=== PATIENT | male | born 1960 | race Two or more races ===

== ENCOUNTER 2020-06-07 14:16 | Outpatient (CLI) | payer BC, SELFPAY | END 2020-06-07 14:17 | disposition home or self-care (01) | LOC: ANHCOVIDVC 14:16 | PROVIDERS: PCP Family Medicine | DX: Z23 Encounter for immunization (principal) | CPT/HCPCS: 0001A; 91300 ==

== ENCOUNTER 2020-06-28 14:15 | Outpatient (CLI) | payer BC, SELFPAY | END 2020-06-28 14:16 | disposition home or self-care (01) | LOC: ANHCOVIDVC 14:15 | PROVIDERS: PCP Family Medicine | DX: Z23 Encounter for immunization (principal) | CPT/HCPCS: 0002A; 91300 ==

== ENCOUNTER → 2023-01-27 07:55 | Outpatient (CLI) | payer BC, SELFPAY ==
--- NOTE | ~2023-01-27 | US_ITS ---
EXAMINATION: US renal BI DATE: 01/27/2023 08:12 INDICATION: Proteinuria, unspecified. TECHNIQUE: Multiple ultrasound grayscale images of the kidneys were obtained. COMPARISON: CT abdomen 11/19/2006 FINDINGS: The right kidney measures 12.8 x 6.4 x 7.3 cm. The left kidney measures 12.2 x 5.2 x 6.8 cm. The kidn eys demonstrate normal parenchymal echogenicity. There is a 5.3 cm cyst in right kidney. There is no hydronephrosis. The bladder is normal. The prostate is severely enlarged. IMPRESSION: 1. Normal kidney sizes. No hydronephrosis. 2. Severely enlarged prostate. Reviewed, dictated and finalized at location E.
== END ==
PROVIDERS: PCP Family Medicine; Visit Provider Internal Medicine Nephrology
DX: E11.65 Type 2 diabetes mellitus with hyperglycemia (principal); I10 Essential (primary) hypertension; R80.9 Proteinuria, unspecified; Z79.4 Long term (current) use of insulin
CPT/HCPCS: 76775

== ENCOUNTER 2024-02-29 00:29 | Day surgery (SDC) | payer BC, SELFPAY ==
[2024-02-15 09:49] VITALS: BMI 33.8
[2024-02-29 07:21] VITALS: BP 147/81; PULSE 85; RESP 18; TEMP 36.1; O2SAT 99
--- NOTE | 2024-02-29 07:37 | WPDANESEPPF ---
Anes - Initial Pre Proc Eval Procedure: Operation Date: 02/29/24 08:30 Proposed Procedures p Screening Colonoscopy - Ernesto Ayala DO Date/Time: 02/29/24 07:37 Surgeon: Ernesto Ayala DO Pre Op Diagnosis: screening for malignant neoplasm of colon Patient Data Age: 63 Gender: M Height: 1.78 m Weight: 106.9 kg Last Vital Signs Temp 36.1 C L 02/29/24 07:21 Pulse 85 02/29/24 07:21 Resp 18 02/29/24 07:21 BP 147/81 H 02/29/24 07:21 Pulse Ox 99 02/29/24 07:21 O2 Del Method Room Air 02/29/24 07:21 Allergies Allergy/AdvReac Type Severity Reaction Status Date / Time No Known Allergies Allergy Verified 02/29/24 07:18 Home Medications Medication Instructions Recorded Confirmed Type aspirin 81 mg tablet,delayed 81 mg PO DAILY 03/07/19 02/29/24 History release (Adult Aspirin Regimen) fexofenadine 180 mg tablet 180 mg PO DAILY 03/07/19 02/29/24 History mecobalamin (vitamin B12) 1,000 1,000 mcg sublingual DAILY 03/07/19 02/29/24 History mcg disintegrating tablet,sublingual multivitamin 1 tablet PO DAILY 07/24/20 02/29/24 History blood sugar diagnostic (Accu-Chek #300 strips 08/04/23 02/29/24 Rx Guide test strips) lisinopril 5 mg tablet See Rx Instructions .Route 08/04/23 02/29/24 Rx .COMPLEX #90 tabs rosuvastatin 5 mg tablet See Rx Instructions .Route 08/04/23 02/29/24 Rx .COMPLEX #90 tabs melatonin 5 mg capsule 5 mg PO QHS 08/18/23 02/29/24 History ferrous sulfate 27 mg iron tablet 27 mg PO DAILY 09/21/23 02/29/24 History dapagliflozin propanediol 10 mg 10 mg PO DAILY #90 tabs 12/09/23 02/29/24 Rx tablet (Farxiga) insulin aspart U-100 100 unit/mL 100 unit subcut DAILY #30 mL 02/11/24 02/29/24 Rx subcutaneous solution insulin glargine 100 unit/mL (3 50 unit (0.5 mL) subcut DAILY PRN 02/11/24 02/29/24 Rx mL) subcutaneous pen (Lantus insulin pump malfunction #15 mL Solostar U-100 Insulin) metformin 1,000 mg tablet 1,000 mg PO BID 90 days #180 tabs 02/11/24 02/29/24 Rx semaglutide 2 mg/dose (8 mg/3 mL) 2 mg (0.75 mL) subcut WEEKLY #9 mL 02/11/24 02/29/24 Rx subcutaneous pen injector (Ozempic) glucagon 1 mg/0.2 mL subcutaneous 1 mg subcut .PRN 02/16/24 02/29/24 History auto-injector (Gvoke HypoPen 2-Pack) trazodone 100 mg tablet See Rx Instructions .Route 02/16/24 02/29/24 History .COMPLEX PRN Sleep Patient hx anesthesia problems: none Family hx anesthesia problems: none Results Review: All pre-operative results and documents have been reviewed as part of the pre-operative evaluation. [facility] Past Medical History Medical History Benign hypertension BMI over 35 Congenital pes planus Dysmetabolic syndrome X Essential hypertension History of acute pancreatitis Metabolic syndrome Microalbuminuria Mixed hyperlipidemia Obesity, unspecified JOSE MIGUEL (obstructive sleep apnea) Other and unspecified hyperlipidemia Type 2 diabetes mellitus with hyperglycemia, with long-term current use of insulin Surgical History Surgical History History of cholecystectomy History of tonsillectomy Hx of appendectomy Family History Family History Sibling Family history of obesity Family history of seizure disorder Father Hypertension Family history of diabetes mellitus in first degree relative Diabetes mellitus Family history of malignant neoplasm of urinary bladder, Onset Age: 42 Mother Hypertension Family history of diabetes mellitus in first degree relative Diabetes mellitus, Onset Age: 55 Grandparent Hypertension Family history of arthritis Diabetes mellitus Family history of malignant neoplasm Social History Social History Social History: Caffeine-none Smoking status: Never smoker Second hand tobacco smoke exposure: No Alcohol intake: never Substance use: never Substance use type: does not use Do You Feel Safe in your Home?: Yes Lack of Transportation: No Lack of Food: Never True Current Housing: I Have Housing Concerned About Future Housing: No Difficulty Paying Gas/Electric Bills: No Difficulty Paying for Meds: No Currently Unemployed: No Education: Bachelor's Degree Difficulty w/ Childcare or Family Care: No Living arrangements: with family Gender identity (if verbalized by the patient): Male Spiritual care concerns: No Agree to blood products: Yes Anes - Eval Final PreProcedure Day of Procedure 02/29/24 07:37 Patient weight: obese Heart: regular rate and rhythm Lungs: clear to auscultation Airway: Mallampati scale class 1 Neurological: alert and oriented Last oral intake: >/= 8 hours ASA classification: III Emergent: no Anesthetic plan: proceed Anesthesia type and monitoring: general GIVS and standard monitoring Results Review: All pre-operative results and documents have been reviewed as part of the pre-operative evaluation. Informed Consent: The patient's anesthetic plan and its attendant risks and benefits were discussed with the patient/family/POA. Questions were solicited and answers provided to the satisfaction of the patient/family/POA.
[2024-02-29] MEDS: LACTATED RINGERS 1,000 ML 150 ML IV CONT (07:38)
[2024-02-29 07:41] LABS: Glucose Point of Care 93 mg/dl (65-105)
--- NOTE | 2024-02-29 07:57 | P.HP_ITS ---
H&P: HPI History of Present Illness Date/Time: 02/29/24 07:57 Chief Complaint: screening for colorectal cancer Narrative: 63 yo man presents for colonoscopy. He has had negative Cologuards before but never had a colonoscopy. Denies fam hx colon cancer. Denies hematochezia/melena. Review of Systems Review of Systems: All systems reviewed & are unremarkable except as noted in HPI and below Constitutional: Constitutional: Denies chills, Denies fever(s), Denies headache(s) and Denies weight loss Eyes: Eyes: Denies change in vision ENT: Denies dizziness, Denies headache(s), Denies neck mass and Denies throat swelling Cardiovascular: Cardiovascular: Denies chest pain, Denies lightheadedness and Denies dyspnea Respiratory: Respiratory: Denies cough, Denies dyspnea and Denies wheezing Gastrointestinal: Gastrointestinal: Denies abdominal pain, Denies change in bowel habits, Denies nausea and Denies vomiting Genitourinary: Genitourinary: Denies hematuria and Denies dysuria Musculoskeletal: Musculoskeletal: Reports as per HPI Integumentary/Breasts: Skin/Breast: Reports as per HPI Neurologic: Denies dizziness and Denies headache(s) Allergic/Immunologic: Allergic/Immunologic: Denies throat swelling and Denies wheezing PMF Past Medical History Medical History Benign hypertension BMI over 35 Congenital pes planus Dysmetabolic syndrome X Essential hypertension History of acute pancreatitis Metabolic syndrome Microalbuminuria Mixed hyperlipidemia Obesity, unspecified JOSE MIGUEL (obstructive sleep apnea) Other and unspecified hyperlipidemia Type 2 diabetes mellitus with hyperglycemia, with long-term current use of insulin Surgical History Surgical History History of cholecystectomy History of tonsillectomy Hx of appendectomy Family History Family History Sibling Family history of obesity Family history of seizure disorder Father Hypertension Family history of diabetes mellitus in first degree relative Diabetes mellitus Family history of malignant neoplasm of urinary bladder, Onset Age: 42 Mother Hypertension Family history of diabetes mellitus in first degree relative Diabetes mellitus, Onset Age: 55 Grandparent Hypertension Family history of arthritis Diabetes mellitus Family history of malignant neoplasm Social History Social History Social History: Caffeine-none Smoking status: Never smoker Second hand tobacco smoke exposure: No Alcohol intake: never Substance use: never Substance use type: does not use Do You Feel Safe in your Home?: Yes Lack of Transportation: No Lack of Food: Never True Current Housing: I Have Housing Concerned About Future Housing: No Difficulty Paying Gas/Electric Bills: No Difficulty Paying for Meds: No Currently Unemployed: No Education: Bachelor's Degree Difficulty w/ Childcare or Family Care: No Living arrangements: with family Gender identity (if verbalized by the patient): Male Spiritual care concerns: No Agree to blood products: Yes Meds Home Medications and Allergies Home Medications Medication Instructions Recorded Confirmed Type aspirin 81 mg tablet,delayed 81 mg PO DAILY 03/07/19 02/29/24 History release (Adult Aspirin Regimen) fexofenadine 180 mg tablet 180 mg PO DAILY 03/07/19 02/29/24 History mecobalamin (vitamin B12) 1,000 1,000 mcg sublingual DAILY 03/07/19 02/29/24 History mcg disintegrating tablet,sublingual multivitamin 1 tablet PO DAILY 07/24/20 02/29/24 History blood sugar diagnostic (Accu-Chek #300 strips 08/04/23 02/29/24 Rx Guide test strips) lisinopril 5 mg tablet See Rx Instructions .Route 08/04/23 02/29/24 Rx .COMPLEX #90 tabs rosuvastatin 5 mg tablet See Rx Instructions .Route 08/04/23 02/29/24 Rx .COMPLEX #90 tabs melatonin 5 mg capsule 5 mg PO QHS 08/18/23 02/29/24 History ferrous sulfate 27 mg iron tablet 27 mg PO DAILY 09/21/23 02/29/24 History dapagliflozin propanediol 10 mg 10 mg PO DAILY #90 tabs 12/09/23 02/29/24 Rx tablet (Farxiga) insulin aspart U-100 100 unit/mL 100 unit subcut DAILY #30 mL 02/11/24 02/29/24 Rx subcutaneous solution insulin glargine 100 unit/mL (3 50 unit (0.5 mL) subcut DAILY PRN 02/11/24 02/29/24 Rx mL) subcutaneous pen (Lantus insulin pump malfunction #15 mL Solostar U-100 Insulin) metformin 1,000 mg tablet 1,000 mg PO BID 90 days #180 tabs 02/11/24 02/29/24 Rx semaglutide 2 mg/dose (8 mg/3 mL) 2 mg (0.75 mL) subcut WEEKLY #9 mL 02/11/24 1 05/01/23 Rx subcutaneous pen injector (Ozempic) glucagon 1 mg/0.2 mL subcutaneous 1 mg subcut .PRN 02/16/24 02/29/24 History auto-injector (Gvoke HypoPen 2-Pack) trazodone 100 mg tablet See Rx Instructions .Route 02/16/24 02/29/24 History .COMPLEX PRN Sleep Allergies Allergy/AdvReac Type Severity Reaction Status Date / Time blueberry Allergy Swelling Verified 02/29/24 07:51 of Lip/Tongue/Throat Vital Signs Vital Signs - 24 hr 02/29/24 07:21 Temperature 97 F L Pulse Rate 85 Respiratory Rate 18 Blood Pressure 147/81 H Pulse Oximetry 99 Oxygen Delivery Room Air Exam Const: General: no acute distress and alert Orientation/consciousness: patient oriented x3 HENMT: Head: normocephalic and atraumatic Ears: hearing grossly normal bilaterally Face/Nose/Sinus: Normal nares present Mouth: Yes Normal oral and palatal mucosa present Eyes: Periorbital: periorbital findings normal Sclera: sclerae normal EOM: EOMs intact bilaterally Neck: Neck: normal visual inspection, no lymphadenopathy and trachea midline Chest: Chest palpation & inspection: normal inspection of the chest Resp: Effort & Inspection: normal respiratory effort Auscultation: clear to auscultation bilaterally Cardio: Jugular venous distension: no JVD Rate: regular rate Rhythm: regular rhythm Heart sounds: S1 normal heart sound present and S2 normal heart sound present Peripheral pulses: Peripheral pulses 2+ throughout GI: Inspection: normal to inspection GI Palp: Yes Soft to palpation, No Tenderness to palpation present (GI), No Guarding due to palpation present (GI) and No Rebound tenderness present Percussion: Yes normal to percussion Auscultation: normal bowel sounds : General: Yes no CVA tenderness Back/Spine/Pelvis: Back: no CVA tenderness Neuro: General: patient oriented x3, no focal motor deficits and CN's II-XI intact bilaterally Cognition (Neuro): normal cognition Speech: normal speech Motor exam (neuro): 5/5 motor strength present throughout Extrem: General: capillary refill normal and no clubbing, cyanosis or edema Assessment and Plan Assessment and plan (1) Colon cancer screening: Code(s): Z12.11 - Encounter for screening for malignant neoplasm of colon Status: Acute Assessment and Plan: I have recommended colonoscopy. I have discussed the procedure, risks, benefits, and alternatives. Questions were answered. Patient is agreeable to proceed.
[2024-02-29 08:19] VITALS: BP 118/80; PULSE 73; RESP 17; O2SAT 99
--- NOTE | 2024-02-29 08:28 | SUR.PHASEII ---
Blood sugar 95 per pt Dexcom reader.
[2024-02-29 08:29] VITALS: BP 122/71; PULSE 75; RESP 18; O2SAT 99
[2024-02-29 08:39] VITALS: BP 129/84; PULSE 72; RESP 18; O2SAT 99
== END 2024-02-29 08:45 | disposition home or self-care (01) ==
PROVIDERS: PCP Family Medicine; Visit Provider Surgery
PROC: 0DJD8ZZ Inspection of Lower Intestinal Tract, Via Natural or Artificial Opening Endoscopic (ICD-10-PCS; CPT 45378; principal; 2024-02-29 08:30)
DX: Z12.11 Encounter for screening for malignant neoplasm of colon (principal); I10 Essential (primary) hypertension; E78.2 Mixed hyperlipidemia; G47.33 Obstructive sleep apnea (adult) (pediatric); E11.9 Type 2 diabetes mellitus without complications; E66.9 Obesity, unspecified; Z68.33 Body mass index [BMI] 33.0-33.9, adult; Z79.84 Long term (current) use of oral hypoglycemic drugs; Z79.4 Long term (current) use of insulin; Z79.85 Long-term (current) use of injectable non-insulin antidiabetic drugs
CPT/HCPCS: 45378; 82948; J2003; J2704; J7120

== ENCOUNTER 2024-05-26 14:00 | Outpatient (RCR) | payer SELFPAY | END 2024-08-16 23:59 | disposition home or self-care (01) | LOC: ANHAUDASC 14:00 | PROVIDERS: PCP Family Medicine; Visit Provider Family Medicine | DX: Z46.1 Encounter for fitting and adjustment of hearing aid (principal) | CPT/HCPCS: 99199; V5014 ==